=== PATIENT | female | born 1965 | race Caucasian/White ===

== ENCOUNTER 2017-07-01 06:30 | Observation (INO) | payer BC ==
[2017-06-23 17:35] LABS: HEMATOCRIT 37.7 % (36.0-48.0); HEMOGLOBIN 12.6 g/dL (12.0-16.0)
[2017-06-23 17:40] LABS: BUN (BLOOD UREA NITROGEN) 16 MG/DL (6-23); CHLORIDE, SERUM 103 MMOL/L (96-112); CO2 (CARBON DIOXIDE) 31 MMOL/L (24-34); CREATININE 0.85 MG/DL (0.55-1.02); GFR AFRICAN AMERICAN 91 ML/MIN (>=60); GFR NON AFRICAN AMERICAN 79 ML/MIN (>=60); GLUCOSE, SERUM 85 MG/DL (60-99); POTASSIUM, SERUM 3.6 MMOL/L (3.5-5.3); SODIUM, SERUM 140 MMOL/L (135-148)
[~2017-07-01] VITALS: Ht 167.6 cm; Wt 78.5 kg
--- NOTE | ~2017-07-01 | OP ---
Record Of Operation [facility] [address] [place]. [address] NAME: CHER FLANAGAN : 65 STATUS : ADM Cole PAT#: [id number] AGE: 52 ADM/REG DATE : 07/01/17 MR#: [id number] REPORT SERV DATE: 07/01/17 DICTATED BY: FAHEEM COREAS DATE: 07/01/17 REPORT STATUS : Draft TRANSCRIBED BY: MODNorberto DATE: 07/01/17 DATE OF PROCEDURE: 07/01/2017 PREOPERATIVE DIAGNOSES: 1. Large herniated nucleus pulposus left C5-6. 2. Severe disk degeneration, cervical spondylosis, and spinal stenosis C4-5. POSTOPERATIVE DIAGNOSES: 1. Large herniated nucleus pulposus left C5-6. 2. Severe disk degeneration, cervical spondylosis, and spinal stenosis C4-5. PROCEDURES: 1. Microscopic and navigation-assisted surgery. 2. Anterior cervical diskectomy, partial corpectomy C4-5 with foraminotomy interbody fusion with allograft C4-5. 3. Anterior diskectomy, foraminotomy, interbody fusion with cortical cancellous allograft C5-6. 4. Anterior segmental spinal instrumentation with Venture plating C4-C6. SURTASS ANALYST: Chantale Leung. ANESTHESIA: General. BLOOD LOSS: 50 mL. INDICATION FOR SURGERY: A 52-year-old female with severe neck, shoulder, and arm pain on the left side. The patient's pain has been unresponsive through lots of conservative care. Plain x-rays were taken and it showed a marked collapse of the disk space with almost no disk space remaining at C4-5 but it had collapsed into a kyphotic angulation. The C5-6 appeared grossly normal but MRI shows a large disk herniation at C5-6 on the left side with severe impingement of the nerve root as well as the lateral cord. At C4-5, there was some foraminal stenosis. The patient brought to the surgery for the above procedure having failed conservative care. Prior to surgery, risks, benefits, alternatives, and expectations were explained. Consent form has been signed. Also please note because of the complexity of surgery and the need to identify correct level of surgery intraoperatively as well as desire to carry out the safest and most precise dissection with least amount of radiation exposure, I feel intraoperative navigation is mandatory. DESCRIPTION OF PROCEDURE: Antibiotic prophylaxis was given. Neurophysiology monitoring leads inserted. The patient was brought to the operative suite. General anesthetic including endotracheal intubation was administered. The patient was in a supine position on fluoroscopic John spine frame. Bony prominences were carefully padded. The shoulders were taped by the side. The scalp was painted with Betadine solution. Bulan three-point fixation attached to the skull using 60 pounds of torque in standard position. The Bulan Record Of Operation [facility] [address] [place]. [address] NAME: CHER FLANAGAN : 65 STATUS : ADM Cole PAT#: [id number] AGE: 52 ADM/REG DATE : 07/01/17 MR#: [id number] REPORT SERV DATE: 07/01/17 DICTATED BY: FAHEEM COREAS DATE: 07/01/17 REPORT STATUS : Draft TRANSCRIBED BY: SUSAN DATE: 07/01/17 was attached to the John frame. The [facility] navigational registration frame attached to the Bulan. The isolation drapes were placed. The neck was scrubbed with Hibiclens solution. DuraPrep was painted. Sterile drapes applied. Intraoperative CT scan with O-arm obtained, CT information was used to register navigational system. With navigational assistance, I identified the C4-5 and C5-6 levels. On the left side at the mid body of C5, a left-sided transverse 2.5 cm skin incision was carried out. The platysma was incised in line with the skin incision. The superficial layer of the deep cervical fascia released along the anterior border of the sternocleidomastoid. Blunt dissection was carried out through the retropharyngeal space where the longus coli muscles were subperiosteally elevated. Retractors were placed. We re-identified the correct level of surgery intraoperatively once the retractors were placed. We placed Danbury distractor pins in the mid body of C5 and C6. The microscope had been sterilely draped. I incised the anterior longitudinal ligament. The anterior diskectomy was completed with curettes and rongeurs. As I moved from anterior to posterior, I widened the interbody space and as I worked posteriorly, it was obvious there was a quite a large tear in the posterior longitudinal ligament just left of midline. A 1 mm Kerrison rongeur was used to take down the posterior longitudinal ligament where a large extruded disk herniation was found in the epidural space. After the diskectomy, a foraminotomy was completed with a 2 mm mahogany bur and 1 mm Kerrison rongeur. Endplate cartilage completely removed. The wounds were irrigated. The width, depth, and height of the disk space was measured and a wedge-shaped cortical cancellous allograft was inserted in the midline. Traction was released locking the graft in good position. Next, we moved, then placed Danbury distractor pins at C4-5. Once again, the anterior osteophytes were debrided. The anterior diskectomy was completed, and the disk was minimal. There appeared to be some early attempts at ossification but the disk space with definitely mobile. We then gradually opened the disk space as we moved from anterior to posterior. I did a partial corpectomy approximately 3 or 4 mm the inferior body of C4 was removed with a 3 mm mahogany bur. Posteriorly, I then debrided the uncinate processes. I took down the posterior longitudinal ligament. This allowed decompression of the foramen on the left. We then placed the interbody graft and traction released locking the graft in good position. Finally, a 6-hole Venture plate was placed over the anterior bodies of C4-C6. It was properly aligned with navigational assistance. The 6 holes were drilled. The locking screws were inserted providing rigid stability. Intraoperative AP x-ray showed good position of all implants. After final wound irrigation, a #7 flat Twin drain was inserted in the retropharyngeal space. The platysma was closed with a running 3-0 Vicryl suture. The subcutaneous tissue was closed with 3-0 Vicryl suture, subcuticular 3-0 PDS used for skin closure. Sterile dressings applied. The patient was awakened and extubated and taken to the recovery room in satisfactory condition having tolerated the procedure well. Record Of Operation [facility] [address] [facility] [place]. [address] NAME: CHER FLANAGAN : 65 STATUS : ADM Cole PAT#: [id number] AGE: 52 ADM/REG DATE : 07/01/17 MR#: [id number] REPORT SERV DATE: 07/01/17 DICTATED BY: FAHEEM COREAS DATE: 07/01/17 REPORT STATUS : Draft TRANSCRIBED BY: MODL DATE: 07/01/17 /MODL Faheem Coreas D.O. / [id number] CC: Faheem Coreas D.O.
[~2017-07-01 06:30] MED LIST: ACT300 PO; ALEVE220 MG PO; ASAB PO; CLARIT10 PO; CONSTULOSE PO; COQ PO; COZ25 PO; GLUCPH PO; HYDROCHLOROT25 MG PO; INDE80LA PO; KLOR-CON M1010 MEQ PO; METHOC750B PO; VITE PO; ZOCOR20 PO
[2017-07-02] MEDS ORDERED: METHOC500B PO (10:51)
[2017-07-02] MEDS ORDERED: OXYCOD PO (10:51)
[2017-07-02] MEDS ORDERED: NEUR100 PO (10:51)
== END 2017-07-02 12:08 | disposition home or self-care (01) ==
LOC: ENRESERVDT → ENRESERVTM → ENRESERV → SDC 06:30 → SDC/OF 12:42 → 3SO 12:42 → SDC 12:45 → 3SO 14:14 → SDC 07-06 12:30
PROVIDERS: Orthopaedic Surgery Orthopaedic Surgery of the Spine
PROC: 0RB30ZZ Excision of Cervical Vertebral Disc, Open Approach (ICD-10-PCS; 2017-07-01)
PROC: 0RG20K0 Fusion of 2 or more Cervical Vertebral Joints with Nonautologous Tissue Substitute, Anterior Approach, Anterior Column, Open Approach (ICD-10-PCS; principal; 2017-07-01 08:15)
PROC: 0RG20J0 Fusion of 2 or more Cervical Vertebral Joints with Synthetic Substitute, Anterior Approach, Anterior Column, Open Approach (ICD-10-PCS; 2017-07-01 08:15)
DX: M50.122 Cervical disc disorder at C5-C6 level with radiculopathy (principal); M47.22 Other spondylosis with radiculopathy, cervical region; M48.02 Spinal stenosis, cervical region; E78.5 Hyperlipidemia, unspecified; E11.9 Type 2 diabetes mellitus without complications; I10 Essential (primary) hypertension; Z90.49 Acquired absence of other specified parts of digestive tract; Z98.818 Other dental procedure status; Z98.890 Other specified postprocedural states; Z79.899 Other long term (current) drug therapy; Z79.82 Long term (current) use of aspirin; Z87.442 Personal history of urinary calculi
CPT/HCPCS: 80048; 82962; 85014; 85018; 87641; 88304; 88311; 93005; 96374; 96376; A9270-GY; C1713; C1768; G0378; J0690; J1170; J2250; J2405; J2710; J3010